=== PATIENT | male | born 1975 | race Caucasian/White ===

== ENCOUNTER → 2023-08-12 16:54 | Outpatient (REF) | payer OTHER, SELFPAY | LOC: RAD 16:54 | PROVIDERS: ATTENDING PHYSICIAN Physician Assistant; FAMILY PHYSICIAN Family Medicine | DX: R05.1 Acute cough (principal) | CPT/HCPCS: 71046 ==

== ENCOUNTER → 2023-11-11 06:24 | Day surgery (SDC) | payer OTHER, SELFPAY | LOC: GI 06:24 | PROVIDERS: ATTENDING PHYSICIAN Internal Medicine Gastroenterology | DX: Z12.11 Encounter for screening for malignant neoplasm of colon (principal); D12.3 Benign neoplasm of transverse colon; K64.0 First degree hemorrhoids; R19.7 Diarrhea, unspecified | CPT/HCPCS: 45380; 88305 ==